=== PATIENT | male | born 1995 | race Hispanic/Latino ===

== ENCOUNTER 2017-01-15 19:52 | Emergency (ER) | payer OTHER ==
[~2017-01-15] VITALS: Ht 188 cm; Wt 90.9 kg
[2017-01-15 19:54] VITALS: BP 128/76; PULSE 98; RESP 16; O2SAT 98
--- NOTE | 2017-01-15 20:03 | ED.REPORT ---
HPI-Chest Pain Under 40 Date of Service Jan 15, 2017 ED Provider: Dr. Rose 21 y/o male with the hx of athletic asthma presents to the ED complaining of waxing and waning chest pain on the left side, onset approximately 14:30 today. The pain improves with rest and upon leaning forward and worsens with movement. Pt describes the pain as "pressure and squeezing" that does not radiate. Associated sx include sore throat. The pt denies SOB, fever, chills, cough, hemoptysis and lower extremity edema. He also denies recent illness, recent surgery, or recent trauma. Nursing Notes Stated Complaint: CHEST PAIN Chief Complaint: Chest Pain Nursing Notes Reviewed: Yes Allergies: Coded Allergies: No Known Allergies (Unverified , 01/15/17) No Active Prescriptions or Reported Meds General Time Seen by MD: 20:02 Chief Complaint Chest pain Hx Obtained From: Patient Arrived By: Walk-in Sudden in Onset?: Yes Onset Occurred: 5 - 8 hours ago Symptom Duration: Waxes and wanes Location: : Chest left Recent Healthcare: Recent doctor visit Risk Factors )( CAD Risk Stratification No risk factors TAD Risk Stratification No risk factors )( PE Risk Stratification No risk factors Past Medical History Past Medical History Reports: Asthma ("athletic asthma") Past Surgical History none reported Smoking History Unknown if Ever Smoker Social History Drug Use: THC Other Social History: Good social support Ambulatory Status Independent Review of Systems Review of Systems Note: denies lower extremity edema Constitutional: Denies: Chills, Fever Respiratory: Denies: Non-productive cough, Prod cough, bloody, Shortness of breath Cardiovascular: Reports: Chest pain Musculoskeletal: Denies: Extremity swelling Complete sys rev & neg: except as marked. Ears / Nose / Throat: Reports: Sore throat Physical Exam Initial Vital Signs Vital Signs (First) Date Time Temp Pulse Resp B/P Pulse Ox O2 Delivery O2 Flow Rate FiO2 01/15/17 19:54 36.9 98 16 128/76 98 Room Air Initial VS: Reviewed General/Constitutional: Awake, Alert, Well appearing Respiratory / Chest: Atraumatic, Breath sounds NL, Breath sounds = bilat Cardiovascular: Heart rate NL, Regular rhythm, Heart sounds NL Neck: Atraumatic, Supple, Full range of motion Abdomen: Atraumatic, Soft Back: Atraumatic, Full range of motion Lower Extremity / Pelvis / MS: Atraumatic, Full range of motion Skin: Atraumatic, Color NL, No rash, Warm, Dry Neurologic: Oriented X3, Speech NL, No motor deficits, No sensory deficits Psychiatric: Affect NL, Mood NL Head / Eyes: Atraumatic, Normocephalic, PERRL, EOMI ENT: Atraumatic, Airway patent, Mucous membranes moist Upper Extremity / MS: Atraumatic, Full range of motion Interpretation & Diagnostics Lab Results Interpretation Result Diagram: 01/15/17205001/15/172050 Test 01/15/17 20:51 White Blood Count 8.0th/mm3 (3.8-10.1) Red Blood Count 5.14mil/mm3 (4.40-5.80) Hemoglobin 14.5g/dL (13.8-17.2) Hematocrit 42.8% (41.0-50.0) Mean Corpuscular Volume 83.3fL (81-100) Mean Corpuscular Hemoglobin 28.2pg (27.0-35.0) Mean Corpuscular Hemoglobin Concent 33.9% (32.0-37.0) Red Cell Distribution Width 13.3% (12.3-15.4) Platelet Count 245bil/L (150-400) Neutrophils (%) (Auto) 49.5% (40-74) Lymphocytes (%) (Auto) 37.6% (14-46) Monocytes (%) (Auto) 9.0% (4-12) Eosinophils (%) (Auto) 3.3% (0-5) Basophils (%) (Auto) 0.5% (0-3) Sodium Level 140mEq/L (134-144) Potassium Level 4.0mEq/L (3.5-5.2) Chloride Level 102mEq/L (97-108) Carbon Dioxide Level 22mmol/L (18-29) Blood Urea Nitrogen 20mg/dL (6-20) Creatinine 1.00mg/dL (0.76-1.27) Estimat Glomerular Filtration Rate 101mL/min (>59) Glucose Level 90mg/dL (60-99) Calcium Level 9.2mg/dL (8.5-10.1) Magnesium Level 2.0mg/dL (1.6-2.6) Total Bilirubin 0.3mg/dL (0.0-1.2) Aspartate Amino Transf (AST/SGOT) 28U/L (0-50) Alanine Aminotransferase (ALT/SGPT) 19U/L (0-44) Alkaline Phosphatase 69U/L (25-150) Troponin T < 0.010ug/L (0.0-0.011) Total Protein 6.8g/dL (6.4-8.4) Albumin 4.2g/dL (3.4-5.0) ECG Interpretation ECG Interpretation: normal sinus rhythm with a rate of [address] elevation T wave inversion in aVR Time: 20:09 Interpreted by: ED physician X-Ray Chest Interpretation Chest Xray Interpretation: IMPRESSION: 1. No acute cardiopulmonary disease. Dictated by: David Harrison M.D. on 01/15/2017 at 20:55 Approved by: David Harrison M.D. on 01/15/2017 at 20:55 View: Portable, 1 view Interpretation / Wet Read by: Interpret - Radiologist Re-Eval/Medical Decision Med Decision/Clinical Course 21-year-old male with past medical history of exercise-induced asthma here with left-sided chest pain which is worse with walking and not relieved by anything. Differential diagnosis includes but is not limited to pneumonia versus asthma versus hypertrophic cardiomyopathy versus myocarditis. Patient's chest x-ray is normal. He does not show any evidence of enlarged heart border. His troponin is normal. His EKG is normal. The remainder of his labs are completely normal. His physical exam is normal. At this time, I do not feel he has a life-threatening cause of his chest pain. He is PERC negative. Given his age, I do not feel he has ACS. No risk factors. He is amenable to discharge at this time with follow-up with his primary care physician. Re-Evaluation/Progress : Time of Eval: 21:53 Patient Status: Condition improved Re-Evaluation/Progress Note: Rechecked pt. Discussed the EKG and X-ray results and the plan to discharge. Pt understood and agreed with the plan. All questions were answered. Counseled Regarding: Diagnosis, Lab results, Need for follow-up, When/why to return to ED Discharge & Departure Primary Impression: Non-cardiac chest pain Disposition: Home Discharge Condition All VS Reviewed: Yes Condition: Stable Patient Instructions: Chest Pain (ED) Additional Instructions: Thank you for entrusting us with your care today. Your EKG and X-ray results were normal. Follow up with your PCP in a few days and return to the ED if there is any difficulty breathing, fever ,chills or any other worsening symptoms. Referrals: Stanley Martinez MD (PCP) Scribe Attestation Portion of this note were transcribed by Arline Cochran and Wandy Segura. I, Dr. Rose, personally performed the history,physical exam and medical decision- making; I reviewed and confirmed the accuracy of the information in transcribed note. Signed by Cece Saldana. 01/15/2017- [id number]. copies to: Stanley Martinez MD, Rebecca A MD Jan 15, 2017 20:03 Arline Cochran Jan 15, 2017 20:18 WANDY SEGURA Jan 15, 2017 22:32
--- NOTE | 2017-01-15 20:57 | DRSVH ---
PROCEDURE: X-RAY CHEST ONE VIEW, PORTABLE ([id number]) INDICATIONS: pain TECHNIQUE: One view of the chest was acquired. COMPARISON: None. FINDINGS: Surgical changes and devices: None. Lungs and pleura: No pleural effusions or pneumothorax. Lungs are clear. Mediastinum: Mediastinal contours appear normal. Heart size is normal. Bones and chest wall: No suspicious bony lesions. Overlying soft tissues appear unremarkable. IMPRESSION: 1. No acute cardiopulmonary disease. Dictated by: David Harrison M.D. on 01/15/2017 at 20:55 Approved by: David Harrison M.D. on 01/15/2017 at 20:55
[2017-01-15 21:06] LABS: BASOPHILS % (AUTO) 0.5 % (0-3); EOSINOPHILS % (AUTO) 3.3 % (0-5); Mean Corpuscular Hemoglobin 28.2 pg (27.0-35.0); Mean Corpuscular Volume 83.3 fL (81-100); NEUTROPHILS % (AUTO) 49.5 % (40-74); Platelet Count 245 bil/L (150-400)
[2017-01-15 21:28] LABS: TROPONIN T < 0.010 ug/L (0.0-0.011)
[2017-01-15 22:49] VITALS: BP 128/76; PULSE 98; RESP 16; O2SAT 98
== END 2017-01-15 22:25 | disposition home or self-care (01) ==
LOC: SED 19:52
DX: R07.89 Other chest pain (principal); J45.998 Other asthma